=== PATIENT | male | born 1955 | race Caucasian/White ===

== ENCOUNTER 2025-04-16 08:11 | Emergency (ER) | payer MEDICARE, SELFPAY ==
[2025-04-16] VITALS (8 sets, daily range): BP systolic 154–201; BP diastolic 86–108; PULSE 68–90; RESP 16–18; TEMP 36.6–36.7; O2SAT 94–99; BMI 22.3; BMI 21.6
--- NOTE | 2025-04-16 08:24 | XR_ITS ---
Examination: CT brain head without contrast. 2-D sagittal coronal reconstructions Date and time of exam:April 16, 2025, certainly 3 hours Indications: Atrial intensity, head pain CTDI: vol (mGy):52 DLP: (mGycm):1111 Technique: Multiple CT axial sections of the brain have been obtained, 5 mm slice thickness. Contrast has not been administered. 2-D sagittal, coronal reconstructions have been obtained Low dose protocols were performed. One or more of the following dose reduction techniques were used; automated exposure control, adjustment of the mA and/or KV according to patient size, use of iterative reconstruction technique. Findings: No significant ventricular enlargement. Intra-axial or extra-axial hemorrhage density is not seen. No mass effect or midline shift Basal cisterns are not remarkable. Fourth ventricle is midline. Cranial vault intact. Impression: Negative for acute hemorrhage, mass effect or midline shift
--- NOTE | 2025-04-16 08:24 | XR_ITS ---
Examination: CT cervical spine without contrast 2-D sagittal reconstructions 2-D coronal reconstructions 3-D reconstructions. Exam date and time:April 16, 2025, 0824 hrs. Indications: Injury to the neck today, neck pain CTDI:vol (mGy) 10 DLP: (mGycm) 144 Technique: Multiple 2 mm axial sections of the cervical spine have been obtained. The coronal and sagittal reconstructions have been obtained. 3-D reconstructions have been obtained. Low dose protocols were performed. One or more of the following dose reduction techniques were used; automated exposure control, adjustment of the mA and/or KV according to patient size, use of iterative reconstruction technique. Findings: Axial sections demonstrate intact base of the skull. C1 exhibit satisfactory relationship to the odontoid. No acute cervical vertebral body fracture seen. Alignment posterior spinous processes satisfactory. Impression: No acute cervical fracture.
--- NOTE | 2025-04-16 08:26 | PD.EDADULT ---
ED General RME/HPI General Chief complaint: Head Injury Stated complaint: HEAD TRAUMA Time Seen by Provider: 04/16/25 08:18 Arrival date/time: 04/16/25 08:11 RME / HPI RME / HPI narrative: DR. CRAWFORD MAIN ED EVALUATION: Patient was on a ladder about 4 feet in the air with a chainsaw on a pole cutting a branch that fell hit him on the head posteriorly and then hit the side of the house with the front of his head with lacerations extending from the eyebrow to the forehead. He has no loss of conscious. He is complaining of lots of head and neck pain. His hearing and vision appear to be normal he has no complaints of shoulder chest belly pelvic or lower extremity pain. He does have some chronic problems with his right hip which are unchanged according to the patient. He was offered a tetanus today states he does not like medicines and refused it. Is also offered some pain medicines and states he does not like medicines and does not want to take those. Related Data Home Medications ?Medication ?Instructions ?Recorded ?Confirmed lisinopril 20 mg tablet 20 mg PO QDAY ##30 11/01/17 Previous Rx's ?Medication ?Instructions ?Recorded hydrocodone 5 mg-acetaminophen 325 1 tab PO Q6H PRN pain #14 tabs 04/16/25 mg tablet Allergies Allergy/AdvReac Type Severity Reaction Status Date / Time NKA* Allergy Uncoded 04/16/25 12:34 Review of Systems Review of Systems Systems Reviewed: All systems reviewed, normal except as documented Narrative Review of Systems: Review of Systems: Constitutional: DENIES: Fevers,; Eyes: DENIES: Loss of vision, Head/Ear/Nose: DENIES: Loss of hearing. Throat: Denies dysphagia. Cardiovascular: Denies chest pain, Dyspnea or syncope. Respiratory: DENIES: Shortness of breath, Gastrointestinal: DENIES: Rectal bleeding or melena. Genitourinary: DENIES: Dysuria (painful or difficult urination),; Musculoskeletal: See HPI; Skin: DENIES: Rash,; Neurological: DENIES: loss of function or movement,; Psychiatric: DENIES: recent major life stressor, emotional problem, illicit drug use or abuse,; Endocrinology: DENIES: Weight change,; Hematologic/Lymphatic: DENIES: Abnormal bruising. Allergic/Immunologic: DENIES: Urticaria (hives), Past Medical History Past Medical History CARDIAC: Positive Hypertension MUSCULOSKELETAL: Positive Bone Cancer (multiple myeloma) OTHER HISTORY: Positive Cancer Social History SMOKING STATUS: Never smoker SUBSTANCE USE: does not use ALCOHOL: Never ED Exam Narrative Physical exam: Physical Exam: General: The vital signs were reviewed. Blood pressure is quite high he is also in pain. The patient has an obvious laceration probably 6 centimeters gaping dermis with minimal subcutaneous seen. Extends from the middle of the eyebrow to the lateral forehead. Otherwise is non-toxic, in no apparent distress and appears healthy with a patent airway, no respiratory distress and has no apparent circulatory problems. Head & Scalp: Normocephalic, atraumatic. Face: Appears normal and is without lesions, deformity. Ears: Left external pinna appears normal. Right external pinna appears normal. Eyes: The sclera is anicteric. No obvious photophobia. The Left and Right Orbit/Lid/Conjunctiva appears normal without swelling, discoloration or injection. Nose: The nose is without deformity, discharge or tenderness; Throat: Appears normal. The mucous membranes are pink and moist without exudates, redness or mass seen. The tongue appears normal. Neck: The neck is supple and no apparent mass or adenopathy. Chest: The chest wall is normal in size and symmetry and has no chest wall tenderness or crepitus. The patient displays normal ventilator effort without retractions, accessory muscle use and has adequate air movement bilaterally with no wheezes and no rales. Cardiovascular: Regular rate and rhythm; No murmurs, rubs, or gallops; Gastrointestinal: The abdomen appears normal. No obvious hernias or mass. The abdomen is soft and benign, non-distended, with no pain, no guarding and no rebound tenderness. Bowel sounds are present and normal sounding. No CVA tenderness. Genitourinary: Inspection of the is unremarkable. Back/Spine: As lots of tenderness over the cervical spine posteriorly but is moving his head with some discomfort. There is no tenderness over thoracic or lumbar spine. Extremities/Musculoskeletal/lymphatic: The bilateral upper and lower extremities are warm. There is no evidence of arterial insufficiency. There is no evidence of venous insufficiency/edema. The patient spontaneously moves bilateral upper and lower extremities with no pain and no limitation of movement. There is no apparent, injury or trauma. Skin: The skin is warm, dry and intact. No rashes. No petechia. No purpura. No abnormal bruising. The color is appropriate with no cyanosis. Mental status/Psychiatric: Mental status is appropriate for age. The patient has no apparent delusions, visual hallucinations, no apparent audible hallucinations. The patient has no apparent suicidal thoughts/ideation and no apparent homicidal thoughts/ideation. Neurological: The patient is awake, alert, interactive, cordial, cooperative and is oriented to name and situation. The patient follows commands and answers historical question with no impairment. There is no visual disturbance apparent. The pupils are equal and reactive bilaterally with normal eye movements and no diplopia The bilateral upper and lower extremities have normal strength, normal range of motion and normal functioning. The gait, station and balance appear to be baseline with no acute change Course Quality Measures none Orders Category Date Time Status Miscellaneous Nursing Order NOW Care 04/16/25 08:[address] cervical spine wo con Stat Exams 04/16/25 08:[address] head/brain wo con Stat Exams 04/16/25 08:24 Completed Morphine Inj Med 04/16/25 08:53 Discontinued 4 mg IVP X1 ONE Morphine Inj Med 04/16/25 09:39 Discontinued 5 mg IVP X1 ONE Ondansetron Inj [Zofran Inj] Med 04/16/25 08:53 Discontinued 4 mg IVP X1 ONE hydrALAZINE INJ [Apresoline Inj] Med 04/16/25 09:17 Discontinued 20 mg IVP X1 ONE Vital Signs Vital signs: Vital Signs Temperature 97.8 F 04/16/25 08:15 Pulse Rate 77 04/16/25 08:15 Respiratory Rate 16 04/16/25 08:15 Blood Pressure 191/106 H 04/16/25 08:15 Pulse Oximetry (%) 95 04/16/25 08:15 Oxygen Delivery Method Room Air 04/16/25 08:15 Discharge Plan Plan Patient Disposition: HOME (Self Care) Prescriptions/Referrals Prescriptions/Med Rec: New hydrocodone-acetaminophen 5-325 mg tablet 1 tab PO Q6H MDD 4 PRN (Reason: pain) Qty: 14 0RF No Action lisinopril 20 MG tablet 20 mg PO QDAY Qty: 30 Referrals: No Primary/Family,Physician [Primary Care Provider] - In 1 week Problem List Clinical Impression: Closed head injury, Contusion of scalp, Laceration of eyebrow, left, Forehead laceration, Hypertensive urgency, Sprain of cervical neck Impression comment: Patient was struck by a heavy branch that he was cutting with laceration and contusions of the head and secondary neck pain strain Patient/Caregiver Discharge Instructions Education Materials: ED Head Injury (Adult), ED Laceration: All Closures, ED Neck Sprain or Strain Additional Instructions: See your doctor in 2 days for a wound recheck. Your neck was probably strained or sprained when the log hits you. This means the muscles and ligaments may have been stretched and will be causing pain maybe for 7 to 21 days. See your doctor if you need further pain management. There will be a short supply of some Vicodin to get you through the next 3 to 4 days. Any further medications must come from your regular doctor. No driving or operating vehicles until your neck pain is improved. You can use Tylenol for pain. For getting worse please return for reevaluation. CT scan of your head and neck were negative today there is no fracture seen. There is no intracranial bleeding. If you begin vomiting or getting worse please return for reevaluation. Do not take any aspirin as this could promote bleeding in the head. Also your blood pressure was quite high today probably secondary to pain. But you should follow-up with your doctor and get this rechecked when you are not injured or hurting so they can evaluate your blood pressure and treat if it remains high. Print Language: [place] Stand Alone Forms: Elisa Award Info., Patient Portal Info Letter MDM Narrative MDM hospital course: Patient had a branch from a tree he was cutting with a chainsaw fall and strike the back of his head and then he struck his left eyebrow and forehead on the house with a 6 cm gaping dermal laceration and a 2-1/2 cm laceration on the posterior occiput. He is having head and neck pain organ to CT his head and neck he was offered pain medicine but refused. He is also offered a tetanus shot and refused that. His blood pressure is high we will reevaluate that. Patient states he does not like medicines. Later on patient asked for some pain medicines and we gave him some morphine and Zofran. CT of the head and neck were read by the radiologist and both were negative. There is no acute fracture. There is no and intracranial injury or bleeding. Blood pressure still high but the pain medicine was just given. The posterior scalp was cleaned up and there is just a superficial laceration no need to repair that. And the anterior laceration was washed irrigated and Steri-Stripped for a total of 6 cm and its well aligned and looks great and there is no bleeding. Patient got a second dose of morphine blood pressure came down and was then able to stand and walk to the bathroom put on his boots and is feeling comfortable and wants to go home. He is advised to return if there is any mental status changes. He knows he is not to drive or operate any equipment climb any ladders. I will be a prescription for some Vicodin for his neck pain. He knows to follow-up with the doctor for wound recheck in 2 days and Steri-Strips can be removed in 7 to 8 days. Bushra Rhoades, eliecer scribing for and in the presence of Dr. Crawford. Clinical Information Provided by patient and EMS Medical Records Reviewed [facility] Meds/Rx Considered, not Ordered None Labs/Rad/Tests considered, not Ordered None Chronic Illness/Social Conditions Add or document further as needed: Patient tends to avoid engaging the healthcare system. He does have a history of multiple myeloma reported to the nurse but has not engaged his oncologist for years. EKG EKG not done Lab Interpretation Labs: see narrative above Imaging Imaging interpretation: see narrative above Radiology reports / interpretation(s): Procedure(s): CT cervical spine wo con Accession Number(s): [id number] cc: Yoseph Crawford MD; Arthur Rose MD~ Examination: CT cervical spine without contrast 2-D sagittal reconstructions 2-D coronal reconstructions 3-D reconstructions. Exam date and time:April 16, 2025, 0824 hrs. Indications: Injury to the neck today, neck pain CTDI:vol (mGy) 10 DLP: (mGycm) 144 Technique: Multiple 2 mm axial sections of the cervical spine have been obtained. The coronal and sagittal reconstructions have been obtained. 3-D reconstructions have been obtained. Low dose protocols were performed. One or more of the following dose reduction techniques were used; automated exposure control, adjustment of the mA and/or KV according to patient size, use of iterative reconstruction technique. Findings: Axial sections demonstrate intact base of the skull. C1 exhibit satisfactory relationship to the odontoid. No acute cervical vertebral body fracture seen. Alignment posterior spinous processes satisfactory. Impression: No acute cervical fracture. Dictated By: Arthur Rose MD Procedure(s): CT head/brain wo con Accession Number(s): [id number] cc: Yoseph Crawford MD; Arthur Rose MD; NO PRIMARY/FAMILY,PHYSICIAN~ Examination: CT brain head without contrast. 2-D sagittal coronal reconstructions Date and time of exam:April 16, 2025, certainly 3 hours Indications: Atrial intensity, head pain CTDI: vol (mGy):52 DLP: (mGycm):1111 Technique: Multiple CT axial sections of the brain have been obtained, 5 mm slice thickness. Contrast has not been administered. 2-D sagittal, coronal reconstructions have been obtained Low dose protocols were performed. One or more of the following dose reduction techniques were used; automated exposure control, adjustment of the mA and/or KV according to patient size, use of iterative reconstruction technique. Findings: No significant ventricular enlargement. Intra-axial or extra-axial hemorrhage density is not seen. No mass effect or midline shift Basal cisterns are not remarkable. Fourth ventricle is midline. Cranial vault intact. Impression: Negative for acute hemorrhage, mass effect or midline shift Dictated By: Arthur Rose MD Medication Administration(s) Medication Administration History Discontinued Medications Hydralazine HCl (Hydralazine Inj 20 Mg/Ml Vial) 20 mg IVP X1 ONE Stop: 04/16/25 09:18 Last Admin: 04/16/25 09:50 Dose: 20 mg Documented By: CONNIE Morphine Sulfate (Morphine Sulf Inj 10 Mg/Ml Vial) 4 mg IVP X1 ONE Stop: 04/16/25 08:54 Last Admin: 04/16/25 08:59 Dose: 4 mg Documented By: CONNIE Morphine Sulfate (Morphine Sulf Inj 10 Mg/Ml Vial) 5 mg IVP X1 ONE Stop: 04/16/25 09:40 Last Admin: 04/16/25 09:47 Dose: 5 mg Documented By: CONNIE Ondansetron HCl (Ondansetron Inj 2 Mg/Ml Inj 2 Ml) 4 mg IVP X1 ONE; Protocol Stop: 04/16/25 08:54 Last Admin: 04/16/25 08:59 Dose: 4 mg Documented By: CONNIE Diagnosis Differential diagnosis: Contusion of the head with lacerations and neck pain probably secondary to Differential dx and/or dx ruled out: No intracranial bleed Most likely dx, and/or detailed dx discussion: Closed head injury Contusion of scalp Laceration of eyebrow, left Forehead laceration Hypertensive urgency Dispositon Disposition: Discharge Home
[2025-04-16] MEDS: ONDANSETRON INJ 2 MG/ML INJ 2 ML 4 MG IVP (08:59)
[2025-04-16] MEDS: MORPHINE SULF INJ 10 MG/ML VIAL 4 MG IVP (08:59)
[2025-04-16] MEDS: MORPHINE SULF INJ 10 MG/ML VIAL 5 MG IVP (09:47)
[2025-04-16] MEDS: hydrALAZINE INJ 20 MG/ML VIAL IVP (09:50)
--- NOTE | 2025-04-16 11:55 | PC.NURSE ---
PT WAS ABLE TO GET UP AND WALK TO THE BATHROOM AND BACK TOO ROOM 4 WITH A STEADY GATE.
== END 2025-04-16 12:40 | disposition home or self-care (01) ==
PROVIDERS: Emergency Provider Emergency Medicine
DX: S09.90XA Unspecified injury of head, initial encounter (principal); S19.9XXA Unspecified injury of neck, initial encounter; W22.09XA Striking against other stationary object, initial encounter; Y93.H2 Activity, gardening and landscaping
CPT/HCPCS: 70450; 72125; 96374; 96375; 96376; 99284; J0360; J2270; J2405